=== PATIENT | female | born 1940 | race Caucasian/White ===

== ENCOUNTER → 2016-11-25 | Outpatient (CLI) | payer OTHER, BC | LOC: MMPC 10:00 | PROVIDERS: ATTEND Podiatrist Foot & Ankle Surgery | DX: M79.671 Pain in right foot (principal); L84 Corns and callosities; M21.6X1 Other acquired deformities of right foot; L60.8 Other nail disorders; M20.41 Other hammer toe(s) (acquired), right foot; M24.574 Contracture, right foot; M24.575 Contracture, left foot; M20.42 Other hammer toe(s) (acquired), left foot; M21.6X2 Other acquired deformities of left foot | CPT/HCPCS: 11056 ×2; 11719 ×2; G0463 ==